=== PATIENT | male | born 1950 ===

== ENCOUNTER 2016-09-10 11:26 | Emergency (ER) | payer MEDICARE, OTHER ==
[2016-09-10] MEDS: Aspirin 81 MG Tab.Chew PO ONE ×2 (11:26→12:09)
[2016-09-10] MEDS ORDERED: Clopidogrel 75 MG Tab PO ONE (12:02)
[2016-09-10] MEDS ORDERED: Metoprolol Tartrate 25 MG Tab PO ONE (12:04)
[2016-09-10] MEDS ORDERED: Non-Formulary Medication 1 Each PO ONE (12:13)
[2016-09-10] MEDS ORDERED: Heparin Sodium/D5W 25,000 UNITS/500 ML BAG IV SCH (12:15)
--- NOTE | 2016-09-10 12:24 | EDM.PDOC ---
ED HPI GENERAL MEDICAL PROBLEM - General Chief Complaint: General Stated Complaint: chest pain Time Seen by Provider: 09/10/16 11:26 Source of Information: Reports: Patient History Limitations: Reports: No Limitations - History of Present Illness INITIAL COMMENTS - FREE TEXT/NARRATIVE: This is a 66yo M who presented to the clinic for chest tightness that lasts 2-3 minutes. Patient states the tightness is a 6-8/10 and the first episode happened on Thursday and resolved in 2-3 minutes. His last episode was yesterday and lasted 2-3 minutes. He denies any exacerbating factors but did state the first episode occurred when he was working. He denies any chest pain, denies any sob, no lightheadedness, no other symptoms. He has had a previous stress and angiogram which were negative per patient. Onset: Sudden Duration: Minutes:, Intermittent Location: Reports: Chest Quality: Reports: Pressure Severity: Mild Improves with: Reports: None Worsens with: Reports: None Associated Symptoms: Reports: No Other Symptoms - Related Data Allergies Allergy/AdvReac Type Severity Reaction Status Date / Time ABBEY Inhibitors Allergy Unknown ANGIOEDEMA Verified 09/10/16 12:05 naproxen [From Naprosyn] Allergy Headache Verified 09/10/16 12:05 Home Meds: Home Meds Diltiazem HCl [Taztia Xt] 360 mg PO DAILY 03/24/14 [History] Etodolac [Etodolac] 400 mg PO BID 03/24/14 [History] Metoprolol Succinate [Toprol XL 50mg] 50 mg PO DAILY 03/24/14 [History] Montelukast Sodium 10 mg PO DAILY PRN 03/24/14 [History] Sertraline HCl [Sertraline HCl] 50 mg PO DAILY 03/24/14 [History] Timolol Maleate [Timoptic 0.25% Ophth Soln] 1 drop EYEBOTH BID 03/24/14 [History ] Social & Family History - Tobacco Use Smoking Status *Q: Never Smoker Years of Tobacco use: 15 Used Tobacco, but Quit: Yes Month Tobacco Last Used: 1984 Second Hand Smoke Exposure: No - Alcohol Use Days Per Week of Alcohol Use: 7 Number of Drinks Per Day: 2 Total Drinks Per Week: 14 - Recreational Drug Use Recreational Drug Use: No ED ROS GENERAL - Review of Systems Review Of Systems: ROS reveals no pertinent complaints other than HPI. ED EXAM, GENERAL - Physical Exam Exam: See Below Exam Limited By: No Limitations General Appearance: Alert, WD/WN, No Apparent Distress Eye Exam: Bilateral Eye: EOMI, PERRL Ears: Normal External Exam Nose: Normal Inspection Throat/Mouth: Normal Inspection Head: Atraumatic, Normocephalic Neck: Normal Inspection Respiratory/Chest: No Respiratory Distress, Lungs Clear Cardiovascular: Normal Peripheral Pulses, Regular Rate, Rhythm Peripheral Pulses: 2+: Dorsalis Pedis (L), Dorsalis Pedis (R) GI/Abdominal: Normal Bowel Sounds Back Exam: Normal Inspection Extremities: Normal Inspection, Normal Range of Motion Neurological: Alert, Oriented, CN II-XII Intact Psychiatric: Normal Affect, Normal Mood Skin Exam: Warm, Dry, Intact Course - Vital Signs Last Recorded V/S: Last Vital Signs Temp 36.7 C 09/10/16 11:30 Pulse 73 09/10/16 12:06 Resp 18 09/10/16 11:30 BP 156/102 H 09/10/16 12:06 Pulse Ox 98 09/10/16 11:30 - Orders/Labs/Meds Orders: Active Orders 24 hr Category Date Time Status Heparin Sodium/D5W [Heparin 25,000 Units in D5W 500 ML] Med 09/10/16 12:15 Ordered 25,000 units in 500 ml IV TITRATE Medication Orders Heparin Sodium/Dextrose (Heparin 25,000 Units In D5w 500 Ml) 25,000 units in 500 mls @ 153.496 mls/hr IV TITRATE RADHA; 60 UNITS/KG/HR PRN Reason: Protocol Meds: Medications Generic Name Dose Route Start Last Admin Trade Name Freq PRN Reason Stop Dose Admin Heparin Sodium/Dextrose 25,000 units in 500 mls @ 153.496 mls/hr 09/10/16 12: 15 Heparin 25,000 Units In D5w 500 Ml IV TITRATE RADHA Protocol 60 UNITS/KG/HR Discontinued Medications Generic Name Dose Route Start Last Admin Trade Name Freq PRN Reason Stop Dose Admin Aspirin 324 mg 09/10/16 12:04 09/10/16 12:09 Aspirin PO 09/10/16 12:05 Not Given ONETIME ONE Clopidogrel Bisulfate 600 mg 09/10/16 12:02 09/10/16 12:09 Plavix PO 09/10/16 12:03 Not Given ONETIME ONE Metoprolol Tartrate 25 mg 09/10/16 12:04 09/10/16 12:06 Lopressor PO 09/10/16 12:05 25 mg ONETIME ONE Administration Non-Formulary Medication 180 each 09/10/16 12:13 Nf Drug PO 09/10/16 12:14 ONETIME ONE Departure - Departure Time of Disposition: 12:45 Disposition: DC/Tfer to Acute Hospital 02 Condition: Undetermined Clinical Impression: NSTEMI, initial episode of care - Discharge Information Forms: ED Department Discharge - Problem List & Annotations (1) NSTEMI, initial episode of care SNOMED Code(s): 433781326, 610465346 Code(s): I21.4 - NON-ST ELEVATION (NSTEMI) MYOCARDIAL INFARCTION Status: Acute Priority: High Current Visit: Yes - Problem List Review Problem List Initiated/Reviewed/Updated: Yes - My Orders Last 24 Hours: My Active Orders 09/10/16 12:15 Heparin Sodium/D5W [Heparin 25,000 Units in D5W 500 ML] 25,000 units in 500 ml IV TITRATE - Assessment/Plan Last 24 Hours: My Active Orders 09/10/16 12:15 Heparin Sodium/D5W [Heparin 25,000 Units in D5W 500 ML] 25,000 units in 500 ml IV TITRATE Assessment:: Patient to be transferred ACLS to [facility] ICU under Dr. Olson. Patient counseled and agrees with plan of care. Aspirin 325mg given Brilinta 180mg given Metoprolol tartrate 25mg given Heparin bolus and drip started
[2016-09-10 12:49] VITALS: BP 156/97
[2016-09-10] MEDS ORDERED: Morphine 10 MG/ML Syringe ONE (12:55)
== END 2016-09-10 13:05 ==
LOC: LB.ED 11:26
DX: I21.4 Non-ST elevation (NSTEMI) myocardial infarction (principal); Z79.899 Other long term (current) drug therapy; Z88.8 Allergy status to other drugs, medicaments and biological substances
CPT/HCPCS: 99285; A0425; A0429; A9270; J1644